=== PATIENT | female | born 1985 | race Caucasian/White ===

== ENCOUNTER 2017-03-31 05:56 | Day surgery (SDC) | payer OTHER ==
[2017-03-31] MEDS ORDERED: EPINEPHrine 1 MG/ML 30 ML MDV ONE (06:01)
[2017-03-31] MEDS ORDERED: Bupivacaine 0.25% 30 ML SDV ONE (06:01)
[2017-03-31] MEDS ORDERED: EPINEPHrine 1 MG/ML SDV ONE (06:22)
[2017-03-31] MEDS ORDERED: Ropivacaine 0.5% 5 MG/ML 30 ML SDV ONE (06:23)
[2017-03-31] MEDS ORDERED: Ondansetron 4 MG/2 ML SDV ONE (06:32)
[2017-03-31] MEDS ORDERED: Lactated Ringers 1,000 ML ONE ×2 (06:32→10:12)
[2017-03-31] MEDS ORDERED: Propofol 200 MG/20 ML SDV ONE (06:32)
[2017-03-31] MEDS ORDERED: ceFAZolin 1 GM Vial ONE (06:32)
[2017-03-31] MEDS ORDERED: Rocuronium 50 MG/5 ML Vial ONE (06:32)
[2017-03-31] MEDS ORDERED: Dexamethasone 4 MG/ML SDV ONE (06:32)
[2017-03-31] MEDS ORDERED: fentaNYL 250 MCG/5 ML SDV ONE ×2 (06:33→08:48)
[2017-03-31] MEDS ORDERED: Midazolam 1 MG/ML 2 ML SDV ONE (06:33)
--- NOTE | 2017-03-31 06:47 | PCM.PREANE ---
Preanesthetic Assessment - Anesthesia/Transfusion/Family Hx Anesthesia History: Prior Anesthesia Without Reaction Family History of Anesthesia Reaction: No Transfusion History: No Prior Transfusion(s) Intubation History: Unknown - Review of Systems General: No Symptoms Pulmonary: No Symptoms Cardiovascular: No Symptoms Gastrointestinal: No Symptoms Neurological: No Symptoms Other: Reports: None - Physical Assessment NPO Status Date: 03/30/17 NPO Status Time: 20:00 O2 Sat by Pulse Oximetry: 95 Respiratory Rate: 16 Vital Signs: Last Vital Signs Temp 37.9 C 03/31/17 06:05 Pulse 87 03/31/17 06:05 Resp 16 03/31/17 06:05 BP 109/90 03/31/17 06:05 Pulse Ox 95 03/31/17 06:05 Height: 1.7 m Weight: 92.533 kg ASA Class: 1 Mental Status: Alert & Oriented x3 Airway Class: Mallampati = 2 Dentition: Reports: Normal Dentition Thyro-Mental Finger Breadths: 3 Mouth Opening Finger Breadths: 3 ROM/Head Extension: Full Lungs: Clear to Auscultation, Normal Respiratory Effort Cardiovascular: Regular Rate, Regular Rhythm - Lab Values: Laboratory Last Values WBC 11.33 K/mm3 (3.98-10.04) H 03/31/17 06:22 RBC 4.95 M/mm3 (3.98-5.22) 03/31/17 06:22 Hgb 14.5 gm/L (11.2-15.7) 03/31/17 06:22 Hct 42.0 % (34.1-44.9) 03/31/17 06:22 MCV 84.8 fl (79.4-94.8) 03/31/17 06:22 MCH 29.3 pg (25.6-32.2) 03/31/17 06:22 MCHC 34.5 g/dl (32.2-35.5) 03/31/17 06:22 RDW Std Deviation 41.8 fL (36.4-46.3) 03/31/17 06:22 Plt Count 144 K/mm3 (182-369) L 03/31/17 06:22 MPV 11.9 fl (9.4-12.3) 03/31/17 06:22 Neut % (Auto) 73.5 % (34.0-71.1) H 03/31/17 06:22 Lymph % (Auto) 18.4 % (19.3-51.7) L 03/31/17 06:22 Crisp % (Auto) 5.5 % (4.7-12.5) 03/31/17 06:22 Eos % (Auto) 1.9 (0.7-5.8) 03/31/17 06:22 Baso % (Auto) 0.3 % (0.1-1.2) 03/31/17 06:22 Neut # (Auto) 8.33 K/mm3 (1.56-6.13) H 03/31/17 06:22 Lymph # (Auto) 2.09 K/mm3 (1.18-3.74) 03/31/17 06:22 Crisp # (Auto) 0.62 K/mm3 (0.24-0.36) H 03/31/17 06:22 Eos # (Auto) 0.21 K/mm3 (0.04-0.36) 03/31/17 06:22 Baso # (Auto) 0.03 K/mm3 (0.01-0.08) 03/31/17 06:22 Urine HCG, Qual Negative (NEGATIVE) 03/31/17 06:05 MRSA (PCR) Negative 03/14/17 14:[address] Jennings. Platelet count and WBC elevation. - Allergies Allergies/Adverse Reactions: Allergies Allergy/AdvReac Type Severity Reaction Status Date / Time No Known Allergies Allergy Verified 03/31/17 06:40 - Acknowledgements Anesthesia Type Planned: General Anesthesia, Regional Block Pt an Appropriate Candidate for the Planned Anesthesia: Yes Alternatives and Risks of Anesthesia Discussed w Pt/Guardian: Yes Pt/Guardian Understands and Agrees with Anesthesia Plan: Yes Additional Comments: Discussed WBC elevation, low platelet count, and low grade fever with Dr. Jennings. Patient denies any sign or symptoms. She states she feels good. Dr. Jennings wishes to proceed with the case as planned. PreAnesthesia Questionnaire - Past Health History Medical/Surgical History: Denies Medical/Surgical History HEENT History: Reports: Other (See Below) Other HEENT History: WISDOM TEETH, CONTACTS Cardiovascular History: Reports: None Respiratory History: Reports: None Gastrointestinal History: Reports: None Genitourinary History: Reports: None LEARNING AND DEVELOPMENT COORDINATOR History: Reports: None Musculoskeletal History: Reports: None Neurological History: Reports: None Psychiatric History: Reports: None Endocrine/Metabolic History: Reports: None Hematologic History: Reports: None Immunologic History: Reports: None Oncologic (Cancer) History: Reports: None Dermatologic History: Reports: None - Past Surgical History Head Surgeries/Procedures: Reports: None Cardiovascular Surgical History: Reports: None Respiratory Surgical History: Reports: None GI Surgical History: Reports: None Female Surgical History: Reports: None Male Surgical History: Reports: None Endocrine Surgical History: Reports: None Neurological Surgical History: Reports: None Oncologic Surgical History: Reports: None Dermatological Surgical History: Reports: None - SUBSTANCE USE Smoking Status *Q: Never Smoker Recreational Drug Use History: No - HOME MEDS Home Medications: Home Meds Cyclobenzaprine [Flexeril] 10 mg PO Q8H PRN #40 tablet 03/29/17 [Rx] Hydrocodone/Acetaminophen [[place] 5-325 Tablet] 1 - 2 each PO Q6H PRN #40 tablet 03/29/17 [Rx] - CURRENT (IN HOUSE) MEDS Current Meds: Current Medications Lactated Ringer's (Ringers, Lactated) 1,000 mls @ 125 mls/hr IV ASDIRECTED ITZEL Stop: 03/31/17 23:00 Last Admin: 03/31/17 06:25 Dose: 125 mls/hr Lidocaine/Sodium Bicarbonate (Buffered Lidocaine 1% In Ns 8.4%) 0.25 ml .XX ONETIME PRN PRN Reason: Prior to IV Start Stop: 03/31/17 18:00 Last Admin: 03/31/17 06:24 Dose: 0.25 ml Sodium Chloride (Saline Flush) 10 ml FLUSH ASDIRECTED PRN PRN Reason: Keep Vein Open Stop: 03/31/17 18:00 Discontinued Medications Bupivacaine HCl (Marcaine 0.25%) Confirm Administered Dose 30 ml .ROUTE .STK- MED ONE Stop: 03/31/17 06:02 Cefazolin Sodium (Ancef) Confirm Administered Dose 2 gm .ROUTE .STK-MED ONE Stop: 03/31/17 06:33 Dexamethasone (Dexamethasone) Confirm Administered Dose 4 mg .ROUTE .STK-MED ONE Stop: 03/31/17 06:33 Epinephrine HCl (Adrenalin 1:1000) Confirm Administered Dose 30 mg .ROUTE .STK- MED ONE Stop: 03/31/17 06:02 Epinephrine HCl (Adrenalin 1:1000) Confirm Administered Dose 1 mg .ROUTE .STK- MED ONE Stop: 03/31/17 06:23 Fentanyl (Sublimaze) Confirm Administered Dose 250 mcg .ROUTE .STK-MED ONE Stop: 03/31/17 06:34 Lactated Ringer's (Ringers, Lactated) Confirm Administered Dose 1,000 mls @ as directed .ROUTE .STK-MED ONE Stop: 03/31/17 06:33 Midazolam HCl (Versed 1 Mg/Ml) Confirm Administered Dose 2 mg .ROUTE .STK-MED ONE Stop: 03/31/17 06:34 Ondansetron HCl (Zofran) Confirm Administered Dose 4 mg .ROUTE .STK-MED ONE Stop: 03/31/17 06:33 Propofol (Diprivan 20 Ml) Confirm Administered Dose 400 mg .ROUTE .STK-MED ONE Stop: 03/31/17 06:33 Rocuronium [place] (Zemuron) Confirm Administered Dose 50 mg .ROUTE .STK-MED ONE Stop: 03/31/17 06:33 Ropivacaine (Naropin 0.5%) Confirm Administered Dose 30 ml .ROUTE .STK-MED ONE Stop: 03/31/17 06:24
[2017-03-31] MEDS ORDERED: Sodium Chloride 0.9% 10 ML Syringe FLUSH PRN (07:00)
[2017-03-31] MEDS ORDERED: Lactated Ringers 1,000 ML IV SCH (07:00)
[2017-03-31] MEDS ORDERED: Lidocaine 1%/Sod Bicarbonate in NS 8.4% 1 ML Syringe PRN (07:00)
[2017-03-31] MEDS ORDERED: HYDROmorphone 1 MG/ML Syringe ONE (07:46)
[2017-03-31] MEDS ORDERED: Ketamine 500 mg/10 ML MDV ONE (07:46)
[2017-03-31] MEDS ORDERED: Phenylephrine/Normal Saline 100 MCG/ML 10 ML Syringe ONE (08:13)
[2017-03-31] MEDS ORDERED: HYDROmorphone 0.5 MG/0.5 ML Syringe IVPUSH PRN (08:16)
[2017-03-31] MEDS ORDERED: fentaNYL 100 MCG/2 ML SDV IVPUSH PRN (08:16)
--- NOTE | 2017-03-31 08:20 | PCM.SN ---
- Free Text/Narrative Note: Anesthesia Procedure Note: (Interscalene Block Note) Date: 03/31/2017 Time Out: 703 Start: 656 Stop: 718 Surgical Procedure: Left Shoulder Video Arthroscopy with Labral Repair Diagnosis: Left Shoulder Bicepts Strain Current Procedure: Left Interscalene Block under US guidance for postoperative pain control requested by Dr. Jennings. Patient chart reviewed, risk/benefits discussed with patient, consent obtained. Patient positioned supine, monitors/alarms on, oxygen placed via nasal cannula at 2 LPM. IV sedation administered: Versed 2mg IV @ 0702 Fentanyl 50 mcg IV @ 0702 Left shoulder prepped with two chloropreps. Sterile drapes placed with aseptic technique noted. Under US guidance(sterile US sleeve noted) left subclavian artery visualized along with the left brachial plexus. Plexus followed up to C6 cricoid level, and area localized with 1mls of 1% lidocaine. 22gauge 2 inch stimiplex needle advanced under US with 0.5mV with stimulation of biceps noted. Good stimulation noted with decreased voltage and absent at 0.2mVs. 1ml of Normal Saline injected with loss of stimulation noted to confirm needle not placed intraneurally. Incremental dosing of 5mls with negative aspiration noted prior to each injection of 0.5% ropivacaine with 1:200,000 epinephrine. Total volume=30mls. An tolerated the procedure well. No complications were noted. Vital signs stable throughout the procedure. VS: 0657 BP: 104/85 HR: 81 SpO2: 100% RR: 16 718 BP: 99/75 HR: 84 SpO2: 98% RR: 15
--- NOTE | 2017-03-31 09:17 | PCM.POSTAN ---
POST ANESTHESIA ASSESSMENT - MENTAL STATUS Mental Status: Alert, Oriented - VITAL SIGNS Pulse Rate: 96 SaO2: 96 Resp Rate: 16 Blood Pressure: 117/76 Temperature: 36.4 C - RESPIRATORY Respiratory Status: Respiratory Rate WNL, Airway Patent, O2 Saturation Stable, Supplemental Oxygen - CARDIOVASCULAR CV Status: Pulse Rate WNL, Blood Pressure Stable - GASTROINTESTINAL GI Status: No Symptoms - PAIN Pain Score: 0 - POST OP HYDRATION Hydration Status: Adequate & Stable
[2017-03-31] MEDS ORDERED: Haloperidol Lactate 5 MG/ML SDV IVPUSH ONE (09:30)
--- NOTE | 2017-03-31 13:29 | PCM48HPAN ---
Post Anesthesia Note - EVALUATION WITHIN 48HRS OF ANESTHETIC Vital Signs in Normal Range: Yes Patient Participated in Evaluation: Yes Respiratory Function Stable: Yes Airway Patent: Yes Cardiovascular Function Stable: Yes Hydration Status Stable: Yes Pain Control Satisfactory: Yes (Denies Pain. ) Nausea and Vomiting Control Satisfactory: Yes Mental Status Recovered: Yes - COMMENTS/OBSERVATIONS Free Text/Narrative:: Interscalene Nerve Block working well. No complications noted.
--- NOTE | 2017-04-09 14:26 | PCM.OPNOTE ---
- General Post-Op/Procedure Note Date of Surgery/Procedure: 03/31/17 Operative Procedure(s): left shoulder video arthroscopy with SLAP repair Pre Op Diagnosis: Left shoulder Type 2/3 slap tear Post-Op Diagnosis: Same Anesthesia Technique: General ET Tube, Regional Block Primary Surgeon: Lewis Jennings Anesthesia Provider: Gisella Beckford Customs Inspector: Kylah Eldridge in mLs: 5 Complications: None Condition: Good
--- NOTE | 2017-04-09 16:23 | OR ---
DATE OF OPERATION: 03/31/2017 SURGEON: Lewis Jennings MD OPERATION PERFORMED: Left shoulder video arthroscopy with SLAP repair. PREOPERATIVE DIAGNOSIS: Left shoulder type 2/3 SLAP tear. POSTOPERATIVE DIAGNOSIS: Left shoulder type 2/3 SLAP tear. ANESTHESIA: General endotracheal intubation with regional interscalene block. ANESTHESIA PROVIDER: Patricia Cai. CURING BIN OPERATOR: Kylah Eldridge PA-C. ESTIMATED BLOOD LOSS: Less than 5 mL. COMPLICATIONS: None. CONDITION: Stable. DESCRIPTION OF PROCEDURE: The patient was identified in the preop holding area. Proper site was marked and identified by the surgeon. The patient was taken back to the operative theater, where after adequate anesthesia, the patient was placed in a lazy right lateral decubitus position. A wedge was placed posteriorly. All bony prominences were well padded. The patient was secured to the table. Left upper extremity was then sterilely prepped and draped in the usual sterile fashion. OR time-out was performed. The patient received 2 g of IV Ancef. At this time, a 12-pound traction was applied to the left upper extremity. Standard posterior incision was made. The scope trocar was introduced to the glenohumeral joint. At this time, with the use of a spinal needle, anterior portal was also created and a cannula was placed anteriorly. At this time, the patient was noted to have a significant bucket-handle tear as well as involvement of the biceps tendon as well for type 2/3 SLAP tear. At this time, the patient had no signs of glenohumeral chondromalacia. There were no loose foreign bodies. The undersurface of the rotator cuff appeared intact. At this time, it was decided that we would do a SLAP repair secondary to the large portion of the bucket handle as well as the anchor into the biceps tendon. At this time, starting anteriorly 3 anchors were placed anteriorly and then posteriorly as well on the SLAP tear. First we roughen the superior border of the glenoid with a rasp and then the resector. Next, a 2.4 mm Arthrex labral PushLock anchor was then placed anteriorly and was found to have good adequate fixation of the labrum. Two were then placed posteriorly at this time, as well and was found to have adequate denominational of the superior labrum as well as attachment of the biceps. At this time, it was stable with the probe. The patient preoperatively did have some signs of impingement, but I do believe that secondary to the type of SLAP tear she has this was her cause of pain. Radiographs showed a type 1 acromion. So I did not believe we had to do a subacromial decompression at this time. At this time, excess saline was drained from the shoulder. A 3-0 nylon simple suture was used for closure of the skin. The patient tolerated the procedure well and was sent to PACU in stable condition. MMODAL /[id number] MTDD
== END 2017-03-31 11:55 | disposition home or self-care (01) ==
LOC: JD.SDS 05:56
PROVIDERS: ATTEND Orthopaedic Surgery
DX: S43.432A Superior glenoid labrum lesion of left shoulder, initial encounter (principal); X58.XXXA Exposure to other specified factors, initial encounter
CPT/HCPCS: 29807; 36415; 64416; 81025; 85025; 87641; C1713; J0171; J0690; J1100; J1170; J2250; J2405; J2795; J3010; J3490; J7120; 01630; 64415; J2704